=== PATIENT | female | born 1985 | race Two or more races ===

== ENCOUNTER 2019-04-14 15:45 | Emergency (ER) | payer BC ==
[~2019-04-14] VITALS: Ht 170.2 cm; Wt 86.0 kg
[2019-04-14] MEDS ORDERED: KETOROLAC 60MG/2ML VIAL IM STA (17:43)
[2019-04-14] MEDS ORDERED: METOCLOPRAMIDE HCL 10MG/2ML VIAL IM ONE (17:45)
[2019-04-14 18:25] LABS: BASOPHILS % 0.2 % (0.0-2.0); EOSINOPHILS % 5.7 % (0.0-5.0); HEMATOCRIT. 41.1 % (36.0-48.0); HEMOGLOBIN. 13.7 g/dL (12.0-16.0); LYMPHOCYTES % 18.6 % (20.0-50.0); MEAN CORPUSCULAR HEMOGLOBIN 29.9 pg (28.0-32.0); MEAN CORPUSCULAR VOLUME 89.4 fL (81.0-99.0); MONOCYTES % 9.8 % (2.0-8.0); NEUTROPHILS % 65.7 % (40.0-76.0); PLATELET 246 x1000/uL (130-400); RED BLOOD CELL COUNT 4.59 mill/uL (4.2-5.4); RED CELL DISTRIBUTION WIDTH 12.9 % (11.6-14.6)
[2019-04-14 18:32] LABS: CHLORIDE 108 mEq/L (98-107)
[2019-04-14 20:44] LABS: CLARITY URINE CLEAR (CLEAR); COLOR URINE YELLOW (YELLOW); KETONES URINE TRACE (NEGATIVE); LEUKOCYTE ESTERASE URINE NEGATIVE (NEGATIVE); NITRITE URINE NEGATIVE (NEGATIVE); OCCULT BLOOD URINE NEGATIVE (NEGATIVE); PH URINE 7.5 (4.5-8.0); PROTEIN URINE NEGATIVE (NEGATIVE); SPECIFIC GRAVITY URINE 1.024 (1.005-1.030)
[2019-04-14 21:25] VITALS: BP 103/59
== END 2019-04-14 21:28 | disposition home or self-care (01) ==
LOC: ER 15:45
DX: R51 Headache (principal); M43.6 Torticollis; Z98.890 Other specified postprocedural states
CPT/HCPCS: 36415; 80048; 81003; 81025; 85025; 96372; 99283; J1885; J2765